=== PATIENT | female | born 1950 | race Caucasian/White ===

== ENCOUNTER 2016-10-15 14:28 | Emergency (ER) | payer MEDICARE, MEDICAID ==
[2016-10-15] MEDS ORDERED: LIDOCAINE PATCH 5% TOP STA (15:44)
[2016-10-15] MEDS ORDERED: HYDROcod/ACETAM 5/325 MG TABLET PO STA (15:45)
[2016-10-15] MEDS ORDERED: LIDOCAINE PATCH 5% TOP ONE (15:56)
[2016-10-15] MEDS ORDERED: HYDROcod/ACETAM 5/325 MG TABLET ONE (15:56)
== END 2016-10-15 16:19 | disposition home or self-care (01) ==
DX: S20.211A Contusion of right front wall of thorax, initial encounter (principal); W18.30XA Fall on same level, unspecified, initial encounter; Y92.009 Unspecified place in unspecified non-institutional (private) residence as the place of occurrence of the external cause; J90 Pleural effusion, not elsewhere classified; F17.200 Nicotine dependence, unspecified, uncomplicated; I10 Essential (primary) hypertension; E11.42 Type 2 diabetes mellitus with diabetic polyneuropathy; Z79.4 Long term (current) use of insulin; Z79.02 Long term (current) use of antithrombotics/antiplatelets; Z79.82 Long term (current) use of aspirin
CPT/HCPCS: 71101; 99283; 99284; A9270

== ENCOUNTER 2016-10-22 13:15 | Outpatient (CLI) | payer MEDICARE, MEDICAID | END 2016-10-22 13:16 | disposition home or self-care (01) | DX: E11.9 Type 2 diabetes mellitus without complications (principal); E03.9 Hypothyroidism, unspecified; E66.9 Obesity, unspecified ==

== ENCOUNTER 2016-11-02 11:57 | Emergency (ER) | payer MEDICARE, MEDICAID ==
[2016-11-02] MEDS ORDERED: SODIUM CHLORIDE 0.9% 1,000 ML IV ONE (12:46)
[2016-11-02] MEDS ORDERED: DEXAMETHASONE 10 MG/ML VIAL IVP STA (13:45)
[2016-11-02] MEDS ORDERED: DEXAMETHASONE 10 MG/ML VIAL ONE (13:50)
== END 2016-11-02 15:12 | disposition home or self-care (01) ==
DX: E86.0 Dehydration (principal); F11.23 Opioid dependence with withdrawal; T40.2X5A Adverse effect of other opioids, initial encounter; R11.2 Nausea with vomiting, unspecified; R42 Dizziness and giddiness; M25.511 Pain in right shoulder; M54.2 Cervicalgia; I10 Essential (primary) hypertension; E11.42 Type 2 diabetes mellitus with diabetic polyneuropathy; Z79.4 Long term (current) use of insulin; F17.200 Nicotine dependence, unspecified, uncomplicated; Z79.82 Long term (current) use of aspirin

== ENCOUNTER 2017-01-22 08:00 | Outpatient (CLI) | payer MEDICARE, MEDICAID | END 2017-01-22 08:01 | disposition home or self-care (01) | DX: E11.9 Type 2 diabetes mellitus without complications (principal) ==

== ENCOUNTER 2017-03-14 09:03 | Outpatient (CLI) | payer MEDICARE, MEDICAID ==
--- NOTE | 2017-03-14 12:52 | Ultrasound Report ---
LEFT LATERAL ABDOMINAL ULTRASOUND: 03/14/2017 CLINICAL INDICATION: Palpable abdominal wall abnormality, reducible, suggestive of hernia. TECHNIQUE: Real-time scanning was performed with underwriting service representative static images obtained. FINDINGS: Ultrasound of the left posterolateral back was performed, at the site of palpable abnormal ity identified by the patient. There is a lumbar hernia at this site, which is reducible. No bowel herniation is visualized. IMPRESSION: LEFT LUMBAR HERNIA. JOB #: [id number] EXT JOB #:[id number]
== END 2017-03-14 09:04 | disposition home or self-care (01) ==
LOC: DI 09:03
PROVIDERS: ATTEND Family Medicine
DX: K45.8 Other specified abdominal hernia without obstruction or gangrene (principal)
CPT/HCPCS: 76705

== ENCOUNTER 2017-04-12 11:37 | Outpatient (CLI) | payer MEDICARE, MEDICAID ==
[2017-04-12 19:24] LABS: HEMOGLOBIN A1C 1.02 g/dL
== END 2017-04-12 11:38 | disposition home or self-care (01) ==
LOC: LAB.N 11:37
PROVIDERS: ATTEND Surgery
DX: K46.9 Unspecified abdominal hernia without obstruction or gangrene (principal)
CPT/HCPCS: 36415; 83036

== ENCOUNTER 2017-05-13 08:06 | Day surgery (SDC) | payer MEDICARE, MEDICAID ==
[2017-05-13] MEDS ORDERED: LACTATED RINGERS 1,000 ML IV ONE ×3 (08:39→11:20)
[2017-05-13] MEDS ORDERED: ceFAZolin 3 GM in SODIUM CHLORIDE 0.9% 100ML 100 ML IV ONE (09:00)
--- NOTE | 2017-05-13 09:06 | HISTORY & PHYSICAL EXAMINATION ---
HPI - History of Present Illness HPI Comment/Other: Cindi is here for repair of lumbar hernia. Her blood glucose has been well controlled at around 107. Ready to proceed with surgery. Past Medical History: Reviewed history from 03/20/2017 and no changes required: Diabetes mellitus II Hypothyroidism Obesity Cigarette smoking COPD Lumbar hernia hyperlipidemia Depression Anxiety Past Surgical History: Reviewed history from 07/17/2016 and no changes required: Interstitial bypass 1997 Lumbar laminectomy Risk Factors: Smoked Tobacco Use: Current every day smoker Cigarettes: Yes -- 5 cigs daily pack(s) per day, Counseled to quit/cut down: yes Passive smoke exposure: no Drug use: no HIV high-risk behavior: no Caffeine use: 2 drinks per day Alcohol use: no Exercise: yes Times per week: 7 Type of Exercise: house cleaning Seatbelt use: 100 % Sun Exposure: occasionally Family History Risk Factors: Family History of [place] in females < 65 years old: no Family History of [place] in males < 55 years old: no Previous Tobacco Use: Signed On - 03/20/2017 Smoked Tobacco Use: Current every day smoker Cigarettes: Yes -- 5 cigs daily pack(s) per day, Counseled to quit/cut down: yes Passive smoke exposure: no Drug use: no HIV high-risk behavior: no Caffeine use: 2 drinks per day Problems were reviewed with the patient during this visit. Medications were reviewed with the patient during this visit. Allergies were reviewed with the patient during this visit. Allergies: NAPROSYN (Critical) PENICILLIN V POTASSIUM (Critical) SULFA (Critical) DILAUDID (HYDROMORPHONE HCL TABS) (Critical) TORADOL (Critical) Physical Exam General: normal appearance. Central obesity Lungs: Bilateral wheezing Heart: regular rate and rhythm, S1, S2 without murmurs, rubs, gallops, or clicks Abdomen: 5 x 5 cm palpable bulge in the left lumbar region which is easily reducible. The defect is not palpable. Pulses: pulses normal in all 4 extremities Extremities: no clubbing, cyanosis, edema, or deformity noted with normal full range of motion of all joints Cervical Nodes: no significant adenopathy Psych: alert and cooperative; normal mood and affect; normal attention span and concentration Impression & Recommendations: Problem # 1: Left lumbar hernia Will proceed with surgery. 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: None : positive: None HEENT: positive: Other Psych: positive: Anxiety, Claustrophobia Musculoskeletal: positive: Chronic back pain Derm: positive: None MRSA Hx?: No - Past Surgical History General: positive: Gastric surgery Ortho: positive: Other /PANTOGRAPH II ENGRAVER: positive: Tubal ligation HEENT: positive: Tonsil/Adenoidectomy Social & Family Hx - Social History Does the pt smoke?: Yes Smoking Status: Current every day smoker Does the pt drink ETOH?: No Does the pt have substance abuse?: No - POLST Patient has POLST: No Meds/Allgy - Home Medications Home Medications: Ambulatory Orders Medication Instructions Recorded Confirmed Levothyroxine Sodium [Synthroid] 200 mcg PO DAILY 02/25/13 05/10/17 Simvastatin 40 mg PO DAILY 02/25/13 05/10/17 metFORMIN [Glucophage] 1,000 mg PO BID 02/25/13 05/10/17 Clopidogrel [Plavix] 75 mg PO ONCE 03/02/13 05/10/17 busPIRone [Buspar] 15 mg PO BID 03/02/13 05/10/17 Olanzapine [Zyprexa] 15 mg PO BID 05/30/14 05/10/17 Sertraline HCl [Zoloft] 150 mg PO DAILY 05/30/14 05/10/17 Aspirin [Aspir 81] 81 mg PO DAILY 07/18/14 05/10/17 Fluticasone/Salmeterol 250/50 1 mg PO DAILY 07/18/14 05/10/17 [Advair 250 Mcg/50 Mcg] Gabapentin 600 mg PO TID 07/18/14 05/10/17 Terbinafine HCl [Lamisil At] 1 applic TP BID 14 Days 02/29/16 05/10/17 Insulin Detemir [Levemir] 30 unit SUBQ QPM 05/10/17 05/10/17 - Allergies Allergies/Adverse Reactions: Allergies Allergy/AdvReac Type Severity Reaction Status Date / Time ketorolac tromethamine * Allergy Itching Verified 11/02/16 12:04 [From Toradol] Penicillins Allergy bloating Verified 11/02/16 12:04 Sulfa (Sulfonamide Allergy bloating Verified 11/02/16 12:04 Antibiotics) tramadol AdvReac Mild Emesis Verified 11/02/16 12:04 hydromorphone HCl * AdvReac Unknown swelling Verified 05/10/17 14:11 [From Dilaudid] Exam - Vital Signs Vital Signs: Vital Signs x48h Temp Pulse Resp BP Pulse Ox 05/13/17 08:27 36.3 C L 93 16 134/66 H 90 L Results - Lab Results Other Lab Results: Lab Results x24hrs 05/13/17 Range/Units 08:37 POC Whole Bld Glucose 159 H (70 - 100) mg/dL
[2017-05-13] MEDS ORDERED: BUPIVACAINE 0.5%-EPI 1:200000 PF 30 ML VIAL SUBQ ONE ×2 (09:41)
[2017-05-13] MEDS ORDERED: ACETAMINOPHEN 1,000 MG/100 ML VIAL IV ONE (10:30)
[2017-05-13] MEDS ORDERED: NEOSTIGMINE 1 MG/1 ML 10 ML MDV IVP ONE (10:30)
[2017-05-13] MEDS ORDERED: LIDOCAINE-MPF 2% 5 ML VIAL IM ONE (10:30)
[2017-05-13] MEDS ORDERED: MIDAZOLAM 2 MG/2 ML VIAL IVP ONE (10:30)
[2017-05-13] MEDS ORDERED: ONDANSETRON 4 MG/2 ML VIAL IVP ONE (10:30)
[2017-05-13] MEDS ORDERED: ROCURONIUM 50 MG/5 ML VIAL IVP ONE (10:30)
[2017-05-13] MEDS ORDERED: SUCCINYLCHOLINE 200 MG/10 ML VIAL IVP ONE (10:30)
[2017-05-13] MEDS ORDERED: PROPOFOL 200 MG/20 ML VIAL IVP ONE (10:30)
[2017-05-13] MEDS ORDERED: ATROPINE 0.4 MG/ML VIAL IVP ONE (10:30)
[2017-05-13] MEDS ORDERED: GLYCOPYRROLATE 1 MG/5 ML VIAL IVP ONE (10:30)
[2017-05-13] MEDS ORDERED: ePHEDrine 50 MG/ML AMP IVP ONE (10:30)
[2017-05-13] MEDS: fentaNYL 100 MCG/2 ML VIAL ONE ×2 (11:28→11:34)
--- NOTE | 2017-05-13 11:34 | OPERATIVE REPORT ---
DATE OF SURGERY: 05/13/2017 00:00:00 PREOPERATIVE DIAGNOSIS: Incisional lumbar hernia. POSTOPERATIVE DIAGNOSIS: Incisional lumbar hernia. NAME OF PROCEDURE: Repair of lumbar hernia. SURGEON: Floresita Lee MD INDICATION FOR PROCEDURE: This is a 66-year-old female status post lumbar fusion with both a lateral and posterior approach. She developed a painful posterolateral lumbar incisional hernia after surgery approximately 5 months ago. She presented to my office for elective repair. FINDINGS: After obtaining informed consent from the patient, she was brought into the operating room and intubated by Anesthesia. She was then positioned in the right lateral decubitus position. She was administered 2 g of Ancef. SCD boots were applied. She was prepped and draped in a usual sterile fashion, and a timeout was taken according to protocol. The hernia was demarcated preoperatively as the hernia was no longer palpable in the lateral position. A transverse 5 cm incision was created overlying the demarcated area. This was deepened down through the subcutaneous tissue to the musculature. No defect was immediately found upon inspection. Subcutaneous flaps were then created just above the muscle layer anteriorly, inferiorly, medially and laterally. Eventually, I was able to locate the hernia defect. This was noted to be just below the lower rib at the junction of the latissimus and abdominal wall muscles. The hernia defect was noted to be approximately 7 inches in length. The hernia sac was then dissected away from the musculature interiorly. Subcutaneous flaps were created to expose the muscles and provide for a large 4 cm circumferential margin. Once the hernia defect was clearly delineated, it was closed with interrupted 0 [id number] Vicryl sutures. A large Prolene mesh was then selected for an overlay. This was cut to the approximate size to ensure an overlay of at least 4 cm in each direction. The subcutaneous cavity was then irrigated and bleeding was noted to be controlled. The mesh was then placed overlapping the hernia defect repair and was sutured into place with interrupted 0 Prolene sutures circumferentially. The subcutaneous tissue was then closed with 3-0 Vicryl. The skin was then closed with 3-0 Monocryl. Benzoin , Steri-Strips, and a silver-impregnated dressing were applied. The patient was then extubated and taken to the recovery room in stable condition. ESTIMATED BLOOD LOSS: 10 mL. COMPLICATIONS: None. SPECIMENS: None. JOB #: [id number] [id number] JOB #:[id number]
[2017-05-13] MEDS ORDERED: oxyCOD/ACETAMIN 5 MG/325 MG TABLET PO ONE (12:12)
[2017-05-13 12:16] VITALS: BP 106/62
== END 2017-05-13 08:07 | disposition home or self-care (01) ==
LOC: SDS 08:06
PROVIDERS: ATTEND Surgery
PROC: 0WUF0JZ Supplement Abdominal Wall with Synthetic Substitute, Open Approach (ICD-10-PCS; principal; 2017-05-13 09:30)
DX: K43.2 Incisional hernia without obstruction or gangrene (principal); F17.210 Nicotine dependence, cigarettes, uncomplicated; E11.9 Type 2 diabetes mellitus without complications; E03.9 Hypothyroidism, unspecified; E66.9 Obesity, unspecified; J44.9 Chronic obstructive pulmonary disease, unspecified; E78.5 Hyperlipidemia, unspecified; F41.9 Anxiety disorder, unspecified; F32.9 Major depressive disorder, single episode, unspecified; Z88.0 Allergy status to penicillin; Z88.2 Allergy status to sulfonamides; Z88.5 Allergy status to narcotic agent; Z82.49 Family history of ischemic heart disease and other diseases of the circulatory system; Z79.84 Long term (current) use of oral hypoglycemic drugs; Z68.30 Body mass index [BMI] 30.0-30.9, adult
CPT/HCPCS: 49560; 49568; A9270; C1781; J0131; J7120

== ENCOUNTER 2017-07-18 15:33 | Outpatient (CLI) | payer MEDICARE, MEDICAID ==
[2017-07-18 13:22] LABS: BASOPHILS % (AUTO) 0.4 %; EOSINOPHILS # (AUTO) 0.2 10^3/uL (0.0-0.7); EOSINOPHILS % (AUTO) 1.9 %; HCT - HEMATOCRIT 47.4 % (37.0-47.0); HGB - HEMOGLOBIN 15.9 g/dL (12.0-16.0); LYMPHOCYTES # (AUTO) 2.3 10^3/uL (1.5-3.5); LYMPHOCYTES % (AUTO) 23.2 %; MEAN CORPUSCULAR HEMOGLOBIN 31.1 pg (27.0-31.0); MEAN CORPUSCULAR HGB CONC 33.6 g/dL (32.0-36.0); MEAN CORPUSCULAR VOLUME 92.7 fL (81.0-99.0); MEAN PLATELET VOLUME 9.8 fL (7.9-10.8); MONOCYTES # (AUTO) 0.4 10^3/uL (0.0-1.0); MONOCYTES % (AUTO) 3.7 %; NEUTROPHILS # (AUTO) 7.1 10^3/uL (1.5-6.6); NEUTROPHILS % (AUTO) 70.8 %; NUCLEATED RED BLOOD CELLS AUTO 0.1 /100WBC; RED BLOOD COUNT 5.11 10^6/uL (4.20-5.40); UNCORRECTED WHITE BLOOD COUNT 10.1 x10^3/uL; WHITE BLOOD COUNT 10.1 x10^3/uL (4.8-10.8)
[2017-07-18 13:49] LABS: THYROID STIMULATING HORMONE 12.63 uIU/mL (0.34-5.60)
[2017-07-18 14:10] LABS: ALBUMIN/GLOBULIN RATIO 1.2 (1.0-2.2); BILIRUBIN,TOTAL 0.3 mg/dL (0.2-1.0); BUN - BLOOD UREA NITROGEN 14 mg/dL (6-20); CALCIUM 10.1 mg/dL (8.5-10.3); CARBON DIOXIDE - CO2 26 mmol/L (21-32); CHLORIDE 99 mmol/L (101-111); CREATININE 0.7 mg/dL (0.4-1.0); GFR - MDRD 84 (>89); GLUCOSE 187 mg/dL (70-100); POTASSIUM 3.9 mmol/L (3.5-5.0); SODIUM 135 mmol/L (135-145); TOTAL PROTEIN 7.8 g/dL (6.7-8.2)
[2017-07-18 14:30] LABS: HEMOGLOBIN A1C 1.14 g/dL
== END 2017-07-18 15:34 | disposition home or self-care (01) ==
LOC: LAB.N 15:33
PROVIDERS: ATTEND Family Medicine
DX: E78.5 Hyperlipidemia, unspecified (principal); E11.9 Type 2 diabetes mellitus without complications; E03.9 Hypothyroidism, unspecified
CPT/HCPCS: 36415; 80053; 83036; 84439; 84443; 85025

== ENCOUNTER 2017-10-23 08:00 | Outpatient (CLI) | payer MEDICARE, MEDICAID ==
[2017-10-23 19:21] LABS: CALCIUM 9.7 mg/dL (8.5-10.3); CREATININE 0.7 mg/dL (0.4-1.0)
[2017-10-23 19:32] LABS: HB2 TOTAL 17.3 g/dL; HEMOGLOBIN A1C 1.5 g/dL; HEMOGLOBIN A1C % 10.1 % (4.6-6.2)
[2017-10-23 19:39] LABS: THYROID STIMULATING HORMONE 4.26 uIU/mL (0.34-5.60)
[2017-10-23 19:41] LABS: FREE T4 (FREE THYROXINE) 1.28 ng/dL (0.58-1.64)
== END 2017-10-23 08:01 | disposition home or self-care (01) ==
LOC: LAB.N 08:00
PROVIDERS: ATTEND Family Medicine
DX: E03.9 Hypothyroidism, unspecified (principal); E11.9 Type 2 diabetes mellitus without complications
CPT/HCPCS: 36415; 80048; 83036; 84439; 84443

== ENCOUNTER 2017-10-28 12:44 | Outpatient (CLI) | payer MEDICARE, MEDICAID ==
--- NOTE | 2017-10-28 17:52 | XRAY Report ---
DATE OF SERVICE: 10/28/2017 TWO-VIEW LUMBAR SPINE: 10/28/2017 CLINICAL INDICATION: Muscle strain. FINDINGS: Frontal and lateral views of the lumbar spine are compared to previous CT of 02/12/2014. There has been interval posterior kate and pedicle screw fusion of L2 through L5, with discectomies performed. There is no evidence of interval fracture or hardware complication. The bowel gas pattern appears normal. IMPRESSION: POSTERIOR KATE AND PEDICLE SCREW FUSION SPANNING L2 THROUGH L5, WITH MULTILEVEL DISCECTOMIES. NO EVIDENCE OF FRACTURE OR HARDWARE COMPLICATION. TD: 10/28/2017 18:50
== END 2017-10-28 12:45 | disposition home or self-care (01) ==
LOC: DI 12:44
PROVIDERS: ATTEND Family Medicine
DX: S39.012D Strain of muscle, fascia and tendon of lower back, subsequent encounter (principal); Z98.1 Arthrodesis status
CPT/HCPCS: 72100

== ENCOUNTER 2017-10-29 19:25 | Emergency (ER) | payer MEDICARE, MEDICAID ==
[2017-10-29 19:34] VITALS: BP 124/71
--- NOTE | 2017-10-29 21:38 | XRAY Report ---
EXAM: SACRUM AND COCCYX RADIOGRAPHY EXAM DATE: 10/29/2017 09:06 PM. HISTORY: Fall, hit tailbone on corner of bed. COMPARISONS: None. TECHNIQUE: 4 views. FINDINGS: Alignment: Normal. The sacrum and coccyx are normally aligned. Bones: Hypertrophy of the left L5 transverse process with pseudarthrosis to S1 on the left. No fractu re or bone lesion. Joints: Postoperative changes in the lower lumbar spine. SI joint spaces well-preserved, with scleros is on the iliac sides of the joints. No definite erosion. Unremarkable visualized hips and pubic symp hysis. Soft Tissues: Unremarkable. IMPRESSION: Chronic findings. No acute disease. [facility] Referring Provider Line: [phone] SITE ID: [id number]
[2017-10-29] MEDS ORDERED: HYDROcod/ACETAM 5/325 MG TABLET PO STA (21:44)
--- NOTE | 2017-10-29 21:46 | ED Physician Documentation ---
PD HPI BACK INJURY - Stated complaint Stated Complaint: BACK PX - History obtained from History obtained from: Patient - History of Present Illness Location: Lower Type of injury: Fall Where injury occurred: Home Timing - onset: Today Timing - details: Abrupt onset Quality: Pain Associated symptoms: No: Fever, Weakness, Numbness Contributing factors: Prior back surgery Recently seen: Not recently seen - Additional information Additional information: Patient is a 67 year old female with multiple spinal surgeries who is presenting to the emergency department for back pain after falling. patient states that she went to sit on her bed, but she misjudged it, and patient fell back landing on her coccyx Review of Systems Constitutional: denies: Fever, Chills Eyes: reports: Reviewed and negative Ears: reports: Reviewed and negative Nose: reports: Reviewed and negative Throat: reports: Reviewed and negative Cardiac: denies: Chest pain / pressure, Palpitations Respiratory: reports: Reviewed and negative GI: denies: Nausea, Vomiting : denies: Unable to Void, Incontinent Skin: denies: Abrasion (s), Laceration (s) Musculoskeletal: reports: Back pain Neurologic: denies: Focal weakness PD PAST MEDICAL HISTORY - Past Medical History Past Medical History: Yes Cardiovascular: High cholesterol Respiratory: COPD Neuro: None, Peripheral neuropathy Endocrine/Autoimmune: Type 1 diabetes, HyPOthyroidism GI: Diverticulitis HORSE TRADER: None : None HEENT: Other Psych: Anxiety, Claustrophobia Musculoskeletal: Chronic back pain Derm: None - Past Surgical History Past Surgical History: Yes General: Gastric surgery Ortho: Other /HORSE TRADER: Tubal ligation HEENT: Tonsil/Adenoidectomy - Present Medications Home Medications: Ambulatory Orders Medication Instructions Recorded Confirmed Levothyroxine Sodium [Synthroid] 200 mcg PO DAILY 02/25/13 10/29/17 Simvastatin 40 mg PO DAILY 02/25/13 10/29/17 metFORMIN [Glucophage] 1,000 mg PO BID 02/25/13 10/29/17 Clopidogrel [Plavix] 75 mg PO ONCE 03/02/13 10/29/17 busPIRone [Buspar] 15 mg PO BID 03/02/13 10/29/17 Olanzapine [Zyprexa] 15 mg PO BID 05/30/14 10/29/17 Sertraline HCl [Zoloft] 150 mg PO DAILY 05/30/14 10/29/17 Aspirin [Aspir 81] 81 mg PO DAILY 07/18/14 10/29/17 Fluticasone/Salmeterol 250/50 1 mg PO DAILY 07/18/14 10/29/17 [Advair 250 Mcg/50 Mcg] Gabapentin 600 mg PO TID 07/18/14 10/29/17 Insulin Detemir [Levemir] 30 unit SUBQ QPM 05/10/17 10/29/17 - Allergies Allergies/Adverse Reactions: Allergies Allergy/AdvReac Type Severity Reaction Status Date / Time ketorolac tromethamine * Allergy Itching Verified 10/29/17 19:47 [From Toradol] Penicillins Allergy bloating Verified 10/29/17 19:47 Sulfa (Sulfonamide Allergy bloating Verified 10/29/17 19:47 Antibiotics) tramadol AdvReac Mild Emesis Verified 10/29/17 19:47 hydromorphone HCl * AdvReac Unknown swelling Verified 10/29/17 19:47 [From Dilaudid] - Social History Does the pt smoke?: Yes Smoking Status: Current every day smoker Does the pt drink ETOH?: No Does the pt have substance abuse?: No - Immunizations Immunizations are current?: Yes - POLST Patient has POLST: No PD ED PE NORMAL - Vitals Vital signs reviewed: Yes - General General: Alert and oriented X 3, No acute distress - HEENT HEENT: Atraumatic - Neck Neck: No bony TTP - Cardiac Cardiac: RRR - Respiratory Respiratory: No respiratory distress - Abdomen Abdomen: Non distended - Derm Derm: Normal color, Warm and dry - Extremities Extremities: No deformity - Neuro Neuro: Alert and oriented X 3, 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, No motor deficit, No sensory deficit, Normal speech Eye Opening: Spontaneous Motor: Obeys Commands Verbal: Oriented GCS Score: 15 PD ED PE EXPANDED - Back Back: Vertebral tenderness (tenderness to palpation over coccyx region, but no ecchymosis or gross deformity) Results - Vitals Vitals: Vital Signs - 24 hr 10/29/17 19:30 Temperature 36.7 C Heart Rate 105 H Respiratory 18 Rate Blood Pressure 124/71 O2 Saturation 94 Oxygen O2 Source Room air - Rads (name of study) sacrum Radiology: Final report received (no acute fracture or dislocation) PD MEDICAL DECISION MAKING - ED course Complexity details: reviewed old records, reviewed results, re-evaluated patient , considered differential, d/w patient, d/w family ED course: Patient was seen and examined at bedside. Patient was well appearing and in no acute distress. imaging was ordered. When patient returned the results were reviewed. there was no acute fracture or dislocation. Patient was treated with one vicodin. Patient required no further work up and was stable for discharge with outpatient follow up. Departure - Departure Disposition: 01 Home, Self Care Clinical Impression: Coccyx contusion Condition: Good Instructions: ED Contusion Back Follow-Up: Nash Mosher MD [Primary Care Provider] - As Needed Comments: Your diagnostics today are within normal limits. there is no acute fracture or dislocation. it may continue to be painful and you should ice the wound and sit with a donut to help relieve pressure. You should follow up with your doctor for persistent pain. You may return to the emergency department at any time for new, worsening or uncontrollable symptoms. Discharge Date/Time: 10/29/17 21:48
== END 2017-10-29 21:48 | disposition home or self-care (01) ==
LOC: ED 19:25
DX: S30.0XXA Contusion of lower back and pelvis, initial encounter (principal); W19.XXXA Unspecified fall, initial encounter; J44.9 Chronic obstructive pulmonary disease, unspecified; E10.42 Type 1 diabetes mellitus with diabetic polyneuropathy; E03.9 Hypothyroidism, unspecified; F17.200 Nicotine dependence, unspecified, uncomplicated
CPT/HCPCS: 72220; 99282; 99283; A9270

== ENCOUNTER 2018-02-10 11:41 | Emergency (ER) | payer MEDICARE, MEDICAID ==
[2018-02-10 12:11] LABS: BILIRUBIN,URINE NEGATIVE (NEGATIVE); GLUCOSE, URINE (UA) NEGATIVE (NEGATIVE); KETONES,URINE (UA) NEGATIVE (NEGATIVE); LEUKOCYTE ESTERASE, URINE NEGATIVE (NEGATIVE); NITRITE,URINE NEGATIVE (NEGATIVE); OCCULT BLOOD,URINE NEGATIVE (NEGATIVE); PH,URINE 6.5 PH (5.0-7.5); PROTEIN,URINE NEGATIVE (NEGATIVE); UROBILINOGEN,URINE 0.2 (NORMAL) E.U./dL (NORMAL)
[2018-02-10 12:13] LABS: CLARITY,URINE CLEAR (CLEAR)
[2018-02-10 12:18] LABS: BASOPHILS # (AUTO) 0.1 10^3/uL (0.0-0.1); BASOPHILS % (AUTO) 0.5 %; EOSINOPHILS # (AUTO) 0.2 10^3/uL (0.0-0.7); EOSINOPHILS % (AUTO) 1.1 %; HGB - HEMOGLOBIN 18.1 g/dL (12.0-16.0); LYMPHOCYTES # (AUTO) 4.6 10^3/uL (1.5-3.5); LYMPHOCYTES % (AUTO) 30.2 %; MEAN CORPUSCULAR HGB CONC 33.1 g/dL (32.0-36.0); MEAN CORPUSCULAR VOLUME 93.5 fL (81.0-99.0); MEAN PLATELET VOLUME 9.4 fL (7.9-10.8); MONOCYTES # (AUTO) 0.8 10^3/uL (0.0-1.0); MONOCYTES % (AUTO) 5.4 %; NEUTROPHILS # (AUTO) 9.5 10^3/uL (1.5-6.6); NEUTROPHILS % (AUTO) 62.8 %; PLT - PLATELET COUNT 301 10^3/uL (130-450); RED BLOOD COUNT 5.82 10^6/uL (4.20-5.40); RED CELL DISTRIBUTION WIDTH 13.9 % (12.0-15.0); WHITE BLOOD COUNT 15.1 x10^3/uL (4.8-10.8)
[2018-02-10 12:25] LABS: ALBUMIN 4.6 g/dL (3.2-5.5); ALBUMIN/GLOBULIN RATIO 1.2 (1.0-2.2); BILIRUBIN,TOTAL 0.6 mg/dL (0.2-1.0); CALCIUM 10.6 mg/dL (8.5-10.3); CREATININE 0.8 mg/dL (0.4-1.0); TOTAL PROTEIN 8.3 g/dL (6.7-8.2)
--- NOTE | 2018-02-10 13:21 | ED Physician Documentation ---
PD HPI ABD PAIN - Stated complaint Stated Complaint: DIARHHEA, VOMITTING - Chief complaint Chief Complaint: Abd Pain - History obtained from History obtained from: Patient - History of Present Illness Timing - onset: How many weeks ago (1) Timing - duration: Weeks (1) Timing - details: Gradual onset, Still present Quality: Aching, Pain Location: All over / everywhere, LLQ Radiation: No: Lower back, Left flank Improved by: BM (cramping pains prior to BMs. Watery brown about 4-6 daily for the past week. Feeling weak and tired. Has nausea and some vomiting.) Worsened by: Eating Associated symptoms: Nausea, Vomiting, Diarrhea, Loss of appetite. No: Fever, Hematemesis, Constipation, Melena, Hematochezia, Dysuria Similar symptoms before: Has not had sx before Recently seen: Not recently seen Review of Systems Constitutional: reports: Myalgias. denies: Fever, Chills Nose: denies: Rhinorrhea / runny nose, Congestion Throat: denies: Sore throat GI: reports: Abdominal Pain, Nausea, Vomiting, Diarrhea. denies: Abdominal Swelling, Constipation, Bloody / black stool : denies: Dysuria, Frequency Skin: denies: Rash Neurologic: reports: Generalized weakness. 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 : None HEENT: Other Psych: Anxiety, Claustrophobia Musculoskeletal: Chronic back pain Derm: None - Past Surgical History Past Surgical History: Yes General: Gastric surgery Ortho: Other /CHIEF CONTROLLER STATION: Tubal ligation HEENT: Tonsil/Adenoidectomy - Present Medications Home Medications: Ambulatory Orders Medication Instructions Recorded Confirmed Levothyroxine Sodium [Synthroid] 200 mcg PO DAILY 02/25/13 10/29/17 Simvastatin 40 mg PO DAILY 02/25/13 10/29/17 metFORMIN [Glucophage] 1,000 mg PO BID 02/25/13 10/29/17 Clopidogrel [Plavix] 75 mg PO ONCE 03/02/13 10/29/17 busPIRone [Buspar] 15 mg PO BID 03/02/13 10/29/17 Olanzapine [Zyprexa] 15 mg PO BID 05/30/14 10/29/17 Sertraline HCl [Zoloft] 150 mg PO DAILY 05/30/14 10/29/17 Aspirin [Aspir 81] 81 mg PO DAILY 07/18/14 10/29/17 Fluticasone/Salmeterol 250/50 1 mg PO DAILY 07/18/14 10/29/17 [Advair 250 Mcg/50 Mcg] Gabapentin 600 mg PO TID 07/18/14 10/29/17 Insulin Detemir [Levemir] 30 unit SUBQ QPM 05/10/17 10/29/17 Diphenoxylate/Atropine [Lomotil] 1 each PO QID PRN #15 tablet 02/10/18 Ondansetron HCl [Zofran] 4 mg PO Q6H PRN #20 tablet 02/10/18 - Allergies Allergies/Adverse Reactions: Allergies Allergy/AdvReac Type Severity Reaction Status Date / Time ketorolac tromethamine * Allergy Itching Verified 02/10/18 11:50 [From Toradol] Penicillins Allergy bloating Verified 02/10/18 11:50 Sulfa (Sulfonamide Allergy bloating Verified 02/10/18 11:50 Antibiotics) tramadol AdvReac Mild Emesis Verified 02/10/18 11:50 hydromorphone HCl * AdvReac Unknown swelling Verified 02/10/18 11:50 [From Dilaudid] - Social History Does the pt smoke?: Yes Smoking Status: Current every day smoker Does the pt drink ETOH?: No Does the pt have substance abuse?: No - Immunizations Immunizations are current?: Yes - POLST Patient has POLST: No PD ED PE NORMAL - Vitals Vital signs reviewed: Yes - General General: Alert and oriented X 3, No acute distress, Well developed/nourished - HEENT HEENT: Pharynx benign. No: Moist mucous membranes - Neck Neck: Supple, no meningeal sign, No adenopathy - Cardiac Cardiac: RRR, No murmur - Respiratory Respiratory: Clear bilaterally - Abdomen Abdomen: Soft, Non distended, No organomegaly. No: Normal bowel sounds ( hyperactive) - Back Back: No CVA TTP, No spinal TTP, Other (no redness nor sores on back. There is some fluid collection subcut right lower back adjacent to prior scarring. Not tender and does not seem infected, likely seroma. ) - Derm Derm: Normal color, Warm and dry - Extremities Extremities: No tenderness to palpate, Normal ROM s pain, No edema, No calf tenderness / cord - Neuro Neuro: Alert and oriented X 3, No motor deficit, Normal speech Results - Vitals Vitals: Vital Signs - 24 hr 02/10/18 02/10/18 11:46 18:14 Temperature 37.0 C Heart Rate 102 H 68 Respiratory 18 18 Rate Blood Pressure 127/97 H 128/85 H O2 Saturation 92 95 Oxygen O2 Source Room air - Labs Labs: Laboratory Tests 02/10/18 02/10/18 02/10/18 12:01 12:01 12:01 WBC 15.1 H RBC 5.82 H Hgb 18.1 H Hct 54.5 H MCV 93.5 MCH 31.0 MCHC 33.1 RDW 13.9 Plt Count 301 MPV 9.4 Neut # 9.5 H Lymph # 4.6 H [place] # 0.8 Eos # 0.2 Baso # 0.1 Absolute Nucleated RBC 0.01 Nucleated RBC % 0.0 Sodium 135 Potassium 4.2 Chloride 97 L Carbon Dioxide 24 Anion Gap 14.0 H BUN 11 Creatinine 0.8 Estimated GFR (MDRD) 72 L Glucose 147 H Calcium 10.6 H Total Bilirubin 0.6 AST 27 ALT 16 Alkaline Phosphatase 67 Total Protein 8.3 H Albumin 4.6 Globulin 3.7 Albumin/Globulin Ratio 1.2 Lipase 28 Urine Color YELLOW Urine Clarity CLEAR Urine pH 6.5 Ur Specific [place] 1.010 Urine Protein NEGATIVE Urine Glucose (UA) NEGATIVE Urine Ketones NEGATIVE Urine Occult Blood NEGATIVE Urine Nitrite NEGATIVE Urine Bilirubin NEGATIVE Urine Urobilinogen 0.2 (NORMAL) Ur Leukocyte Esterase NEGATIVE Ur Microscopic Review NOT INDICATED Urine Culture Comments NOT INDICATED - Rads (name of study) abd CT Radiology: Prelim report reviewed (no intraadb process acutely. noted is right lumbar likely seroma. ) PD MEDICAL DECISION MAKING - ED course Complexity details: reviewed results, re-evaluated patient (she is feeling better with fluids and meds. Of course, no diarrhea here. ), considered differential, d/w patient Departure - Departure Disposition: 01 Home, Self Care Clinical Impression: Nausea vomiting and diarrhea, Dehydration Condition: Stable Record reviewed to determine appropriate education?: Yes Instructions: ED Diet Vomiting Diarrhea Follow-Up: Nash Mosher MD [Primary Care Provider] - Prescriptions: Diphenoxylate/Atropine [Lomotil] 1 each PO QID PRN #15 tablet PRN Reason: Diarrhea Ondansetron HCl [Zofran] 4 mg PO Q6H PRN #20 tablet PRN Reason: Nausea / Vomiting Comments: Small frequent fluids. [place] food initially and progress as able. This may be a viral illness and improve with simple treatment. Ondansetron if needed for nausea and Lomotil if needed for diarrhea. If the diarrhea persists into tomorrow then bring a sample of it to the hospital here or 1 of the hospital clinics for stool culture and studies. Follow-up with your primary care if not improved over the next few days. Discharge Date/Time: 02/10/18 18:23
[2018-02-10] MEDS ORDERED: SODIUM CHLORIDE 0.9% 1,000 ML IV ONE ×2 (13:39→13:43)
[2018-02-10] MEDS ORDERED: ONDANSETRON 4 MG/2 ML VIAL IVP STA ×2 (13:39→16:23)
[2018-02-10] MEDS ORDERED: MORPHINE 10 MG/ML VIAL IVP STA ×2 (13:40→16:42)
[2018-02-10] MEDS ORDERED: ACETAMINOPHEN 1,000 MG/100 ML 100 ML IV STA (13:40)
[2018-02-10] MEDS ORDERED: IOPAMIDOL-300 100 ML VIAL ONE (14:07)
[2018-02-10] MEDS ORDERED: IOPAMIDOL-300 100 ML VIAL IVP ONE (14:45)
--- NOTE | 2018-02-10 15:34 | CT Preliminary Report ---
Exam: CT ABDOMEN/PELVIS W/ IMPRESSION: 1. 8.0 x 3.5 x 4.2 cm subcutaneous fluid adjacent to what appears to be a surgically created defect l eft flank, probably due to the interval lumbar spine fusion. Correlate clinically to differentiate be tween bland seroma or liquefied hematoma versus abscess. 2. Colonic diverticulosis. 3. Remote multifocal small bowel surgery without bowel obstruction. 4. Increasing small pericardial effusion. Number. Normal appendix. [facility] SITE ID: [id number]
--- NOTE | 2018-02-10 15:47 | CT Report ---
EXAM: CT ABDOMEN AND PELVIS EXAM DATE: 02/10/2018 02:45 PM. CLINICAL HISTORY: Abdominal pain, vomiting and diarrhea. COMPARISONS: 09/19/2013. TECHNIQUE: Routine helical CT imaging was performed through the abdomen and pelvis. IV contrast: 100 ml Isovue 300. Enteric contrast: No. Reconstructions: Coronal and sagittal. In accordance with CT protocol optimization, one or more of the following dose reduction techniques w ere utilized for this exam: automated exposure control, adjustment of mA and/or KV based on patient s ize, or use of iterative reconstructive technique. FINDINGS: Lung Bases: Increasing pericardial fluid, now measuring up to 1.5 cm, water density. Heart normal warren iber. Liver: Fatty infiltration. No masses. Gallbladder/Bile Ducts: Unremarkable. Spleen: Normal. Pancreas: Normal. Adrenal Glands: Normal. Kidneys: Normal. No masses or hydronephrosis. Peritoneal Cavity/Bowel: Remote small bowel surgery with anastomosis right mid abdomen and left upper quadrant. Large and small bowel normal caliber. Diverticula off the colon. Interval development of a 7 x 4 x 5 cm fat-filled hernia left flank. There is a 8.0 x 3.5 x 4.2 cm bl and appearing fluid collection measuring 26 Hounsfield units in the subcutaneous fat at this point. N o edema within the herniated fat. No free air nor free fluid. No significant adenopathy. The appendix is well visualized and normal. Pelvic Organs: Normal. The bladder and visualized pelvic organs are within normal limits. Vasculature: No aneurysms or other significant abnormality. Bones: Interval laminectomy, diskectomy and left-sided posterior fusion L2 to L5. Other: None. IMPRESSION: 1. 8.0 x 3.5 x 4.2 cm subcutaneous fluid adjacent to what appears to be a surgically created defect l eft flank, probably due to the interval lumbar spine fusion. Correlate clinically to differentiate be tween bland seroma or liquefied hematoma versus abscess. 2. Colonic diverticulosis. 3. Remote multifocal small bowel surgery without bowel obstruction. 4. Increasing small pericardial effusion. 5. Normal appendix. [facility] Referring Provider Line: [phone] SITE ID: [id number]
[2018-02-10] MEDS ORDERED: DIPHENOX/ATROPINE 2.5/0.025 MG TABLET PO STA (17:19)
[2018-02-10 18:15] VITALS: BP 128/85
== END 2018-02-10 18:23 | disposition home or self-care (01) ==
LOC: ED 11:41
DX: E86.0 Dehydration (principal); R11.2 Nausea with vomiting, unspecified; R19.7 Diarrhea, unspecified; J44.9 Chronic obstructive pulmonary disease, unspecified; E78.00 Pure hypercholesterolemia, unspecified; E10.42 Type 1 diabetes mellitus with diabetic polyneuropathy; Z79.4 Long term (current) use of insulin; E03.9 Hypothyroidism, unspecified; Z98.84 Bariatric surgery status; Z79.82 Long term (current) use of aspirin; F17.200 Nicotine dependence, unspecified, uncomplicated
CPT/HCPCS: 36415; 74177; 80053; 81003; 83690; 85025; 96361; 96365; 96375; 96376; 99284; A9270; J0131; Q9967; 81001; 87086

== ENCOUNTER 2018-02-17 09:17 | Outpatient (CLI) | payer MEDICARE, MEDICAID | END 2018-02-17 09:18 | disposition home or self-care (01) | LOC: LAB 09:17 | PROVIDERS: ATTEND Emergency Medicine | DX: R19.7 Diarrhea, unspecified (principal) | CPT/HCPCS: 87493 ==

== ENCOUNTER 2020-10-06 | Outpatient (CLI) | payer MEDICARE, MEDICAID | END 2020-10-06 21:56 | disposition short-term general hospital (02) | DX: R55 Syncope and collapse (principal) | CPT/HCPCS: A0425; A0427 ==